=== PATIENT | male | born 1975 | race Two or more races ===

== ENCOUNTER 2017-03-01 14:49 | Emergency (ER) | payer OTHER ==
[~2017-03-01] VITALS: Ht 175.3 cm; Wt 86.2 kg
--- NOTE | 2017-03-01 14:55 | NUR ---
Presents self to ed dt rle pain, 10/10, non radiating x 2 months. Patient denies injury. Pt ambulatory. vss
[2017-03-01 18:01] VITALS: BP 158/96
== END 2017-03-01 18:02 | disposition home or self-care (01) ==
LOC: ER 14:51
DX: M79.604 Pain in right leg (principal); F17.210 Nicotine dependence, cigarettes, uncomplicated; Z90.89 Acquired absence of other organs
CPT/HCPCS: 93925-TC; 93971-TC; A4606; Z7610

== ENCOUNTER 2017-10-24 18:20 | Inpatient (IN) | payer OTHER ==
[~2017-10-24] VITALS: Ht 172.7 cm; Wt 96.2 kg
--- NOTE | 2017-10-24 18:25 | NUR ---
[id number], [id number] FROM HOME-WOKE UP W/ ANXIETY-UNDER A LOT OF STRESS LATELY DUE TO DIVORCE W/ . C/O HEADACHE. BP HIGH IN THE FIELD: 184/90. SKIN IS WARM AND DRY. PLACED ON THE MONITOR. AWAITING MD FOR EVAL.
[2017-10-24 18:42] LABS: BASOPHILS % (AUTO) 0.4 % (0.0-2.0); EOSINOPHILS % (AUTO) 4.2 % (0.0-6.0); HEMATOCRIT 43 % (39-51); HEMOGLOBIN 14.9 g/dL (13.5-17.5); LYMPHOCYTES # (AUTO) 2.2 /CMM (0.8-4.8); LYMPHOCYTES % (AUTO) 25.7 % (20.0-44.0); MEAN CORPUSCULAR HGB CONC 34 g/dl (31.0-36.0); MEAN CORPUSCULAR VOLUME 95 fL (80-96); MONOCYTES # (AUTO) 0.3 /CMM (0.1-1.30); MONOCYTES % (AUTO) 3.7 % (2.0-12.0); NEUTROPHILS # (AUTO) 5.6 /CMM (1.8-8.9); PLATELET COUNT (AUTO) 236 /CMM (150-450); RDW COEFFICIENT OF VARIATION 13.1 (11.5-15.0); RED BLOOD CELL COUNT(AUTO) 4.55 MIL/uL (4.5-6.0); WHITE BLOOD COUNT (AUTO) 8.5 K/uL (4.3-11.0)
[2017-10-24] MEDS ORDERED: NITROGLYCERIN 0.4 MG/TAB BOTTLE ONE (18:48)
[2017-10-24] MEDS ORDERED: ASPIRIN 325 MG TABLET ONE (18:49)
[2017-10-24 18:54] LABS: CARBON DIOXIDE 25 mmol/L (21-32); CHLORIDE 100 mmol/L (98-107); CREATININE 0.7 mg/dL (0.6-1.3); GLUCOSE 114 mg/dL (74-106); POTASSIUM 3.5 mmol/L (3.5-5.1); SODIUM SERUM 136 mmol/L (136-145); UREA NITROGEN, BLOOD 9 mg/dL (7-18)
--- NOTE | 2017-10-24 18:57 | NUR ---
2ND DOSE GIVEN NITRO 0.4MG SL GIVEN BP: 154/95 Addendum: 10/24/17 at 1911 by TOSHIA PATIENT STATES THE PAIN IS NOW 12/20 FROM 02/20
[2017-10-24 18:58] LABS: INR 0.88 (0.85-1.15)
[2017-10-24] MEDS ORDERED: ASPIRIN 325 MG TABLET PO ONE (19:00)
[2017-10-24] MEDS ORDERED: NITROGLYCERIN 0.4 MG/TAB BOTTLE SL ONE (19:00)
[2017-10-24 19:02] LABS: TROPONIN I < 0.017 ng/mL (0.00-0.056)
--- NOTE | 2017-10-24 19:02 | NUR ---
PATIENT REFUSED TO TAKE THE 3RD NITRO, PATIENT STATES THE PAIN IS NOW 5/10
--- NOTE | 2017-10-24 19:05 | NUR ---
REPORT GIVEN TO ED, PAGE TECHNICIAN RN FOR IVONNE.
[2017-10-24] MEDS ORDERED: LEVO100T9 PO (19:07)
[2017-10-24] MEDS ORDERED: ALPR2TAB7 PO (19:07)
[2017-10-24] MEDS ORDERED: VARE1TAB PO (19:07)
[2017-10-24] MEDS ORDERED: QUET50TA PO (19:07)
[2017-10-24] MEDS ORDERED: ONDANSETRON HCL/PF 4 MG/2 ML VIAL ONE (19:15)
[2017-10-24] MEDS ORDERED: MORPHINE SULFATE INJ 4 MG/ML DISP.SYRIN ONE (19:15)
--- NOTE | 2017-10-24 19:16 | NUR ---
ASSUMED CARE. PT RESTING QUIETLY, NO ACUTE DISTRESS NOTED, RESP EVEN AND UNLABORED. PENDING HOSPITAL ADMISSION. CALL LIGHT WITHIN REACH. WILL CONTINUE TO MONITOR PT CLOSELY.
[2017-10-24] MEDS ORDERED: MORPHINE SULFATE INJ 2 MG/ML DISP.SYRIN IV ONE (19:30)
[2017-10-24] MEDS ORDERED: ONDANSETRON HCL/PF 4 MG/2 ML VIAL IV ONE (19:30)
--- NOTE | 2017-10-24 19:33 | NUR ---
CALLED [facility] FOR PANEL CALL AND DR BRITT WAS PAGED.
--- NOTE | 2017-10-24 20:05 | NUR ---
er talking to dr. kristan romo regarding pt admission. will call for report.
--- NOTE | 2017-10-24 20:06 | NUR ---
PT IS ASSIGNED TO [facility], PT IS DIAGNOSED WITH CHEST PAIN, AND DR BRITT IS THE ACCEPTING MD.
--- NOTE | 2017-10-24 20:27 | NUR ---
report called to telemarketing representativemaribeth miller. will transport pt via acls protocol.
--- NOTE | 2017-10-24 21:00 | NUR ---
MS/RN NOTES PATIENT IS A NEW ADMITTED 42 Y.O MALE WHO WAS ADMITTED FOR CHEST PAIN, ELEVATED BLOOD PRESSURE, COMPLAIN OF 9/10 PAIN AT THE ER, PALPITATION AND HEADACHE, WITH ANXIETY AND DEPRESSION AND HTN HISTORY. ALERT, ORIENTED X3, ABLE TO VERBALIZE NEEDS, ON CARDIAC MONITORING AT . LABS WITHIN RANGE, TROPONIN 0.17, MD ORDER FOR CARDIAC DIET, AND CONTACTED FOR MEDS RECON AND ORDERS, BELONGINGS CHECK, SKIN CHECK, NO OPEN WOUND BUT DRY, LUNGS CLEAR UPON AUSCULTATION.
[2017-10-24 21:36] VITALS: BP 155/104
[2017-10-24 21:38] VITALS: BP 155/104
[2017-10-24 22:00] VITALS: BP 155/104
[2017-10-24] MEDS ORDERED: MAGNESIUM HYDROXIDE 30 ML UDC PO PRN (22:30)
[2017-10-24] MEDS ORDERED: NITROGLYCERIN 0.4 MG/TAB BOTTLE SL PRN (22:30)
[2017-10-24] MEDS ORDERED: Z GUARD REMEDY 2 OZ OINT TP PRN (22:30)
[2017-10-24] MEDS ORDERED: ZOLPIDEM TARTRATE 5 MG TABLET PO PRN (22:30)
[2017-10-24] MEDS ORDERED: MAG HYDROX/AL HYDROX/SIMETH 30 ML UDC PO PRN (22:30)
[2017-10-24] MEDS ORDERED: ACETAMINOPHEN 325 MG TABLET PO PRN (22:30)
[2017-10-24] MEDS ORDERED: METOPROLOL TARTRATE 25 MG TABLET PO SCH (22:30)
[2017-10-24] MEDS ORDERED: MORPHINE SULFATE INJ 2 MG/ML DISP.SYRIN IV PRN (22:30)
[2017-10-24] MEDS ORDERED: ONDANSETRON HCL/PF 4 MG/2 ML VIAL IVP PRN (22:30)
[2017-10-25] VITALS (7 sets, daily range): BP systolic 125–166; BP diastolic 81–115
--- NOTE | 2017-10-25 00:23 | NUR ---
MD MAKI MADE ROUNDS, AT BEDSIDE DISCUSSED PLAN OF CARE WITH PLAN TO KEEP PATIENT NPO HOLD BREAKFAST UNTIL FURTHER TEST AND CHECK BY DR. PATTERSON IN AM. DISCUSSED BY PATIENT THAT STRESS DONE WAS DONE RECENTLY AT [facility] AND REQUEST FOR DOCUMENT TO BE SENT TO HOSPITAL.
[2017-10-25] MEDS: HYDROCODONE/APAP 5/325MG 1 EACH TABLET PO PRN ×2 (06:09→18:00)
--- NOTE | 2017-10-25 06:18 | NUR ---
tele/rn notes patient able to ambulate to bathroom, tele reading at sr 70's. pain reported at 5/10 on the head, aching and pulling, vital sign check with elevated b/p, agreed to have norco 5-325 mg po , on npo status, except meds for clarification.
[2017-10-25 06:30] LABS: BASOPHILS % (AUTO) 0.3 % (0.0-2.0); EOSINOPHILS % (AUTO) 4.3 % (0.0-6.0); HEMATOCRIT 40 % (39-51); HEMOGLOBIN 14.1 g/dL (13.5-17.5); LYMPHOCYTES % (AUTO) 25.2 % (20.0-44.0); MEAN CORPUSCULAR HGB CONC 35 g/dl (31.0-36.0); MEAN CORPUSCULAR VOLUME 96 fL (80-96); MONOCYTES # (AUTO) 0.4 /CMM (0.1-1.30); NEUTROPHILS # (AUTO) 5.2 /CMM (1.8-8.9); NEUTROPHILS % (AUTO) 65.2 % (43.0-81.0); PLATELET COUNT (AUTO) 187 /CMM (150-450); RDW COEFFICIENT OF VARIATION 13.6 (11.5-15.0)
--- NOTE | 2017-10-25 06:30 | NUR ---
request for medical record from [facility] with consent receive from patient per Dr. Sims for stres test copies that was done recent months. called medical record and to fax form.
[2017-10-25 06:46] LABS: CALCIUM, SERUM 8.7 mg/dL (8.5-10.1); CREATININE 0.8 mg/dL (0.6-1.3); MAGNESIUM 1.5 mg/dL (1.8-2.4); PHOSPHORUS 3.3 mg/dL (2.5-4.9); POTASSIUM 3.6 mmol/L (3.5-5.1)
[2017-10-25 06:49] LABS: THYROID STIMULATING HORMONE 1.604 uIU/mL (0.358-3.74)
--- NOTE | 2017-10-25 06:59 | NUR ---
321-2 TELE/RN NOTES PATIENT ABLE TO SLEEP DURING THE NIGHT,RESTING COMFORTABLY IN BED,RESPIRATIONS EVEN AND UNLABORED, ABLE TO VERBALIZE NEEDS, WILL ENDORSE TO AM RN . ON CARDIAC MONITORING SINUS RYTHM IN 70'S
--- NOTE | 2017-10-25 07:30 | NUR ---
tele medical information officer: cardio consult seen and examined by dr. kumar with orders. orders acknowledged. pt remains npo. pt verbalized understanding of ct angiogram procedure and consent signed. radiology dept notified of order, spoke to viola. will continue to monitor.
[2017-10-25] MEDS: ASPIRIN EC 81 MG TABLET.DR PO SCH ×2 (09:00→10:47)
[2017-10-25] MEDS: VALSARTAN 80 MG TABLET PO SCH ×2 (09:00→10:50)
[2017-10-25] MEDS ORDERED: METOPROLOL TARTRATE INJ 5 MG/5 ML AMPUL ONE ×2 (09:36→09:56)
--- NOTE | 2017-10-25 09:45 | NUR ---
tele dynamite packing machine feeder: notes kristan (agricultural crop farm manager) at bedside and inserted iv to right ac, gauge #18 and will bring pt to radiology for ct angio.
[2017-10-25] MEDS ORDERED: IV NS 0.9% 500 ML IV ONE (09:55)
[2017-10-25] MEDS ORDERED: CT SWABBABLE VALVE TRANS SET 1 EA INFUS.SET MC ONE (09:55)
[2017-10-25] MEDS ORDERED: IOHEXOL-350 100 ML VIAL IV ONE (09:55)
--- NOTE | 2017-10-25 10:00 | NUR ---
tele baseball coach: notes pt taken to radiology dept via bed accompanied by icu nurse for ct angiogram.
--- NOTE | 2017-10-25 10:40 | NUR ---
tele director nursing service: notes pt back from ct angio via bed. per kristan (horticulture/floriculture teacher). result pending. breakfast ordered. instructed to call for assistance. will continue to monitor.
[2017-10-25] MEDS: Magnesium 1GM/D5W 100ML PREMIX 100 ML IV SCH ×2 (10:59→12:50)
[2017-10-25] MEDS: METOPROLOL TARTRATE 50 MG TABLET PO SCH ×3 (11:40→23:00)
[2017-10-25] MEDS: MORPHINE SULFATE INJ 4 MG/ML DISP.SYRIN IV PRN (12:52)
--- NOTE | 2017-10-25 12:52 | NUR ---
tele mud mill tender: notes pt c/o 02/20 chest pain, medicated with morphine 2mg ivp by rn. denies sob. instructed to call for assistance. will continue to monitor.
--- NOTE | 2017-10-25 13:22 | NUR ---
tele collection systems administrator: notes pt sounds asleep. no s/s of resp. distress noted. will continue to monitor.
--- NOTE | 2017-10-25 15:00 | NUR ---
m/s gyroscope repairer: notes pt c/o norris. tylenol offered, but refused, stated, "ice pack will help, tylenol doesn't work for me." ice pack provided. instructed to call for assistance. will continue to monitor.
--- NOTE | 2017-10-25 18:00 | NUR ---
m/s airframe and power plant mechanic: notes c/o 7/10 medial chest discomfort. norco 5/325mg po given as ordered. instructed to call for assistance. will continue to monitor.
--- NOTE | 2017-10-25 18:09 | NUR ---
m/s civil lawyer: notes pt vomited undigested food. zofran 4 mg ivp given by rn. family at bedside. instructed to call for assistance. will continue to monitor.
--- NOTE | 2017-10-25 19:30 | NUR ---
RN NOTE, RECEIVED TP IN BED AWAKE AND ALERT. BREATHING EVENLY. NO SOB. NAD. ALEXANDRA WARM AND DRY,. REPORTED FEELING BETTER AFTER RECEIVING PAIN MEDICATION. NEEDS ATTENDED. BED LOW LOCKED. CALL LIGHT WITHIN REACH. WILL CONT TO MONITOR ,
[2017-10-25] MEDS ORDERED: SIMVASTATIN 20 MG TABLET PO SCH (22:00)
--- NOTE | 2017-10-25 22:55 | NUR ---
AMBIEN 5MG GIVEN ORDERED PER PT'S REQUEST FOR C/O INSOMNIA. WILL CONT TO MONITOR ,
[2017-10-26] MEDS: METOPROLOL TARTRATE 50 MG TABLET PO SCH (05:09)
[2017-10-26 06:31] LABS: CALCIUM, SERUM 8.2 mg/dL (8.5-10.1); CREATININE 0.7 mg/dL (0.6-1.3); POTASSIUM 3.5 mmol/L (3.5-5.1)
--- NOTE | 2017-10-26 06:31 | NUR ---
PT IN BED SLEEPING, AROUSES EASILY. BREATHING EVENLY. NO S/S OR C/O PAIN OR DISCOMFORT. NO C/O CP OVER THE NIGHT . NEEDS ATTENDED. BED LOW LOCKED. CALL LIGHT WITHIN REACH. WILL CONT TO MONITOR .
--- NOTE | 2017-10-26 07:44 | NUR ---
MS RN OPENING NOTE PATIENT RESTING IN BED AT THIS TIME COMFORTABLY. NO FACIAL GRIMACING NOTED FOR PAIN. NO SOB OR DISTRESS NOTED. CALL LIGHT WITHIN REACH. SAFETY MEASURES IMPLEMENTED. ABLE TO COMMUNICATE NEEDS. ON ROOM AIR TOLERATING WELL. IV INTACT AND PATENT NO REDNESS OR SWELLING NOTED. PENDING LABS THIS MORNING. WILL FOLLOW UP FOR MEDICAL RECORDS FOR STRESS TEST FROM [facility]. WILL CONTINUE TO MONITOR THROUGHOUT SHIFT
[2017-10-26 08:00] VITALS: BP 145/96
[2017-10-26] MEDS ORDERED: METOPROLOL SUCCINATE 50 MG TAB.SR.24H PO SCH (08:30)
[2017-10-26] MEDS: MORPHINE SULFATE INJ 4 MG/ML DISP.SYRIN IV PRN (08:44)
[2017-10-26 09:42] VITALS: BP 141/90
[2017-10-26] MEDS: VALSARTAN 80 MG TABLET PO SCH (09:42)
[2017-10-26] MEDS ORDERED: VALS80TA2 PO (10:30)
[2017-10-26] MEDS ORDERED: METO50TA7 PO (10:30)
--- NOTE | 2017-10-26 11:30 | NUR ---
INTERIOR DESIGN ASSISTANT NOTE PATIENT DISCHARGE HOME IN STABLE CONDITION. ALL DUE MEDICATIONS GIVEN ORDERED. ALL NURSING CARE NEEDS ATTENDED TOO NEEDED. ABLE TO COMMUNICATE NEEDS. IV REMOVED, SKIN INTACT. PRESCRIPTION GIVEN TO PATIENT. NO CHEST PAIN PRIOR TO DISCHARGE. NO SOB OR DISTRESS NOTED. ALL BELONGINGS WITH PATIENT UPON DISCHARGE. FOLLOW UP WITH PRIMARY CARE PHYSICIAN IN ONE WEEK. LEFT VIA PRIVATE CAR WITH FAMILY.
--- NOTE | 2017-10-26 11:31 | NUR ---
RN NOTE PATIENT REFUSED TO SIGN BELONGINGS AND REFUSED WOUND PICTURE DOCUMENTATION. PATIENT STATED " I JUST WANT TO GO HOME RIGHT NOW"
== END 2017-10-26 11:25 | disposition home or self-care (01) | DRG 756 ==
LOC: ER 18:21 → TELE 20:33 → MED 10-25 08:40
DX: F41.9 Anxiety disorder, unspecified (principal); E83.42 Hypomagnesemia; I10 Essential (primary) hypertension; E78.5 Hyperlipidemia, unspecified; Z72.0 Tobacco use; Z79.899 Other long term (current) drug therapy; R51 Headache; T46.3X5A Adverse effect of coronary vasodilators, initial encounter; Y92.009 Unspecified place in unspecified non-institutional (private) residence as the place of occurrence of the external cause
CPT/HCPCS: 36415; 71045-TC; 75574; 80048-TC; 80061-TC; 83735-TC; 83880; 84100-TC; 84443-TC; 84484-TC; 85025-TC; 85730-TC; 87081-TC; 93307-TC; A4606; J2270; J2405; J3475; J3490; J7040; J7050; Q9967; Z7610